=== PATIENT | male | born 1990 | race Hispanic/Latino ===

== ENCOUNTER 2024-07-29 18:54 | Emergency (ER) | payer SELFPAY ==
[~2024-07-29] VITALS: Ht 170.2 cm; Wt 110.0 kg
[2024-07-29] MEDS ORDERED: DEXAMETHASONE 2 MG/TAB TAB PO SCH (19:25)
[2024-07-29] MEDS ORDERED: ACYCLOVIR 400 MG TAB PO ONE (19:25)
[2024-07-29] MEDS ORDERED: DEXAMETHASONE 2 MG/TAB TAB PO ONE (20:10)
[2024-07-29] MEDS ORDERED: ACYCLOVIR400 MG PO (22:46)
[2024-07-29] MEDS ORDERED: DEXAMETHASON6 MG PO (22:46)
[2024-07-29 23:02] VITALS: BP 131/83
== END 2024-07-29 23:02 | disposition home or self-care (01) | DRG 74 ==
LOC: ED 18:54
DX: G51.0 Bell's palsy (principal)